=== PATIENT | female | born 1960 | race Caucasian/White ===

== ENCOUNTER 2016-10-04 08:21 | Observation (INO) | payer SELFPAY ==
[2016-10-04] MEDS ORDERED: Ondansetron INJ* 2 MG/ML VIAL IV ONE (08:57)
[2016-10-04] MEDS ORDERED: Ketorolac INJ* 30 MG/ML 1 ML VIAL IV PUSH ONE (08:57)
[2016-10-04 09:30] LABS: Hematocrit 42 % (35-47); Hemoglobin 14.1 g/dl (12.0-16.0); Mean Corpuscular HGB Conc 34 g/dl (31-36); Mean Corpuscular Hemoglobin 30 pg (27-31); Mean Corpuscular Volume 89 fL (80-97); Mean Platelet Volume 8 um3 (7.4-10.4); Red Blood Count 4.71 10^6/ul (4.0-5.4); Red Cell Distribution Width 14 % (10.5-15); White Blood Count 13.8 10^3/ul (3.5-10.8)
[2016-10-04 09:50] LABS: BUN/Creatinine Ratio 12.2 (8-20); C Reactive Protein 84.44 mg/L (< 5.00); Calcium 8.9 mg/dL (8.6-10.3); EGFR African American 105.2 (>60); EGFR Non-African American 81.8 (>60); Globulin 3.2 g/dL (2-4); Potassium 3.4 mmol/L (3.5-5.0); Total Bilirubin 0.8 mg/dL (0.2-1.0); Total Protein 7.2 g/dL (6.4-8.9)
[2016-10-04] MEDS ORDERED: Iohexol 300* (CONTRAST) 10 ML SDV IV ONE (10:28)
[2016-10-04 11:15] LABS: Urine Bacteria Absent (Absent); Urine Bilirubin Negative (Negative); Urine Glucose Negative (Negative); Urine Nitrite Negative (Negative)
--- NOTE | 2016-10-04 11:31 | RAD ---
CLINICAL HISTORY: Abdominal pain COMPARISON: None TECHNIQUE: Multiple contiguous axial CT scans were obtained of the abdomen and pelvis after the administration of intravenous contrast. Coronal and sagittal multiplanar reformations are submitted for review. Oral contrast was administered. Delayed images were obtained through the abdomen and pelvis. FINDINGS: LUNG BASES: The lung bases are clear. LIVER: The liver is normal in shape, size, contour, and attenuation. BILE DUCTS: There is no intrahepatic or extrahepatic biliary dilatation. GALLBLADDER: The gallbladder is normal, without pericholecystic inflammatory change. PANCREAS: The pancreas is normal, without mass or ductal dilatation. SPLEEN: Normal in size and appearance. UPPER GI TRACT: Evaluation of the gastrointestinal tract is limited by incomplete gastric distention. The upper GI tract is unremarkable. SMALL BOWEL AND MESENTERY: The small bowel is normal in contour, course, and caliber. There is no obstruction or dilatation. COLON: The colon is normal in contour, course, caliber. There is no pericolonic inflammatory change. There is a tubular, vermiform, hollow viscus consistent with the appendix. There is dilatation of the tip of the appendix, best seen on coronal image 36, with a small appendicolith. There is straightening of the periappendiceal fat. There is no loculated fluid collection to suggest abscess. ADRENALS: Normal bilaterally. KIDNEYS: The kidneys are normal in shape, size, contour, and axis. There is no hydronephrosis or nephrolithiasis. BLADDER: The bladder is incompletely distended but is grossly normal. PELVIC ORGANS: An IUD is noted. AORTA: The aorta is normal. IVC: Unremarkable LYMPH NODES: There is no lymphadenopathy by size criteria. ABDOMINAL WALL: There is no evidence for abdominal wall hernia. BONES AND SOFT TISSUES: Mild degenerative changes are noted OTHER: None IMPRESSION: FINDINGS MOST CONSISTENT WITH ACUTE APPENDICITIS LOCALIZED TO THE TIP OF THE APPENDIX. THERE IS NO LOCULATED FLUID COLLECTION TO SUGGEST ABSCESS
[2016-10-04] MEDS ORDERED: Morphine INJ* 4 MG/ML 1 ML SYRINGE IV ONE (11:35)
[2016-10-04] MEDS ORDERED: ceFOXitin(*) 1 GM in NS 0.9% 50 ML* 50 ML IVPB ONE (11:38)
[2016-10-04] MEDS ORDERED: KCL 10 MEQ/50 ML IVPREMIX* 10 MEQ/50 ML BAG IV ONE (12:04)
[2016-10-04] MEDS ORDERED: Insulin REGULAR(*) 1 UNITS UNIT IV PUSH ONE (12:05)
[2016-10-04] MEDS ORDERED: Famotidine IV* 10 MG/ML 2 ML (20 mg) IV ONE (12:26)
--- NOTE | 2016-10-04 12:50 | ED ---
Arsenio Carranza Auryana, scribed for Babatunde Chandler MD on 10/04/16 at 0847 . Abdominal Pain/Female - HPI Summary HPI Summary: 56 year old female BIBA with burning LUQ abdominal pain starting yesterday morning. She states that the pain subsided, and then pain returned as cramping/ burning abdominal pain but is now severe suprapubic cramping - reports "felt like passing a kidney stone". The pain is a 9/10 and is constant but intermittently worse. She also has "hot and cold" episodes, vomiting x2, increased urgency of urination - urinated x5 last night, and decreased appetite (no food yesterday - constipation due to that). She denies any diarrhea. She reports movement aggravates the pain - states that it feels like muscle cramping. Mild improvement with heating pad. IUD 6 years ago. PMHx is significant for kidney stones and carpal tunnel Sx but no HTN, HLD, or DM. She denies any FHx. SHx is significant for tobacco (3-4 packs/ week) and occasional alcohol use (last - Tuesday night - wine) but no recreational drugs. - History of Current Complaint Stated Complaint: ABD PAIN Time Seen by Provider: 10/04/16 08:26 Hx Obtained From: Patient Hx Last Menstrual Period: n/a ?: No Onset/Duration: Gradual Onset - STARTING YESTERDAY, Still Present Timing: Constant - WITH INTERMITTENT SEVERE EPISODES Severity Initially: Moderate Severity Currently: Severe Pain Intensity: 9 Pain Scale Used: 0-10 Numeric Location: Diffuse - SEE HPI Character: Sharp, Burning, Cramping Aggravating Factor(s): Movement Alleviating Factor(s): Other: - MILD ALLEVIATION FROM HEATING PAD Associated Signs and Symptoms: Positive: Urinary Symptoms - INCREASED URGENCY, Decreased Appetite, Vomiting, Other: - HOT AND COLD EPISODES. Negative: Diarrhea Allergies/Adverse Reactions: Allergies Allergy/AdvReac Type Severity Reaction Status Date / Time Cephalexin Allergy Diarrhea Verified 10/04/16 11:56 Penicillins Allergy Rash Verified 10/04/16 11:52 Home Medications: Home Medications NK [No Home Medications Reported] 10/04/16 [History Confirmed 10/04/16] PMH/Surg Hx/FS Hx/Imm Hx Endocrine/Hematology History: Denies: Hx Diabetes Cardiovascular History: Denies: Hx Hypercholesterolemia, Hx Hypertension History: Reports: Hx Kidney Stones - Surgical History Surgery Procedure, Year, and Place: CARPAL TUNNEL SX - Family History Known Family History: Positive: None Negative: Cardiac Disease, Hypertension - Social History Occupation: Employed Full-time - SELF EMPLOYED Lives: Alone Alcohol Use: Occasionally Alcohol Amount: 3 DAYS AGO - TUESDAY - WINE Hx Substance Use: No Substance Use Type: Reports: None Hx Tobacco Use: Yes Smoking Status (MU): Heavy Every Day Tobacco Smoker Type: Cigarettes Review of Systems Positive: Other - HOT AND COLD FLASHES. Negative: Fever Eyes: Negative ENT: Negative Cardiovascular: Negative Respiratory: Negative Positive: Abdominal Pain, Vomiting, Nausea. Negative: Diarrhea Positive: urgency - INCREASED Musculoskeletal: Negative Skin: Negative Neurological: Negative Psychological: Normal All Other Systems Reviewed And Are Negative: Yes Physical Exam - Summary Physical Exam Summary: VITAL SIGNS: Reviewed. Normal vital signs. GENERAL: Patient is a well developed and overweight female who is lying uncomfortable in the stretcher secondary to abdominal pain. Patient is not in any acute respiratory distress. HEAD AND FACE: Normocephalic and atraumatic. EYES: PERRLA, EOMI x 2, No injected conjunctiva. EARS: Hearing grossly intact. Ear canals and tympanic membranes are WNL. MOUTH: Oropharynx within normal limits. NECK: Supple, trachea is midline, no adenopathy, no JVD. CHEST: Symmetric, no tenderness at palpation LUNGS: Clear to auscultation bilaterally. No wheezing or crackles. CVS: RRR,, S1 and S2 present, no murmurs or gallops appreciated. ABDOMEN: Soft. Difficult to palpate due to reported pain. Diffuse tenderness with increased tenderness in the RLQ. No signs of distention. Positive bowel sounds. No abdominal bruit or pulsations. EXTREMITIES: FROM in all major joints, no edema, no cyanosis or clubbing. NEURO: Alert and oriented x 3. No acute neurological deficits. Speech is normal. SKIN: Dry and warm Triage Information Reviewed: Yes Vital Signs On Initial Exam: Initial Vitals Temp Pulse Resp BP Pulse Ox 98.6 F 73 16 107/66 100 10/04/16 08:28 10/04/16 08:28 10/04/16 08:28 10/04/16 08:28 10/04/16 08:28 Vital Signs Reviewed: Yes Diagnostics - Vital Signs Vital Signs Temp Pulse Resp BP Pulse Ox 10/04/16 11:57 16 10/04/16 08:28 98.6 F 73 16 107/66 100 - Laboratory Lab Results: Lab Results 10/04/16 10/04/16 10/04/16 Range/Units 09:15 09:15 09:15 WBC 13.8 H (3.5-10.8) 10^3/ul RBC 4.71 (4.0-5.4) 10^6/ul Hgb 14.1 (12.0-16.0) g/dl Hct 42 (35-47) % MCV 89 (80-97) fL MCH 30 (27-31) pg MCHC 34 (31-36) g/dl RDW 14 (10.5-15) % Plt Count 236 (150-450) 10^3/ul MPV 8 (7.4-10.4) um3 Neut % (Auto) 84.0 H (38-83) % Lymph % (Auto) 10.0 L (25-47) % [place] % (Auto) 4.6 (1-9) % Eos % (Auto) 0.3 (0-6) % Baso % (Auto) 1.1 (0-2) % Absolute Neuts (auto) 11.6 H (1.5-7.7) 10^3/ul Absolute Lymphs (auto) 1.4 (1.0-4.8) 10^3/ul Absolute Monos (auto) 0.6 (0-0.8) 10^3/ul Absolute Eos (auto) 0 (0-0.6) 10^3/ul Absolute Basos (auto) 0.2 (0-0.2) 10^3/ul Absolute Nucleated RBC 0.01 10^3/ul Nucleated RBC % 0 Sodium 139 (133-145) mmol/L Potassium 3.4 L (3.5-5.0) mmol/L Chloride 101 (101-111) mmol/L Carbon Dioxide 27 (22-32) mmol/L Anion Gap 11 (2-11) mmol/L BUN 9 (6-24) mg/dL Creatinine 0.74 (0.51-0.95) mg/dL Est GFR ( Amer) 105.2 (>60) Est GFR (Non-Af Amer) 81.8 (>60) BUN/Creatinine Ratio 12.2 (8-20) Glucose 114 H (70-100) mg/dL Lactic Acid 1.6 (0.5-2.0) mmol/L Calcium 8.9 (8.6-10.3) mg/dL Total Bilirubin 0.80 (0.2-1.0) mg/dL AST 12 L (13-39) U/L ALT 18 (7-52) U/L Alkaline Phosphatase 80 (34-104) U/L C-Reactive Protein 84.44 H (< 5.00) mg/L Total Protein 7.2 (6.4-8.9) g/dL Albumin 4.0 (3.2-5.2) g/dL Globulin 3.2 (2-4) g/dL Albumin/Globulin Ratio 1.3 (1-3) Amylase 20 L (29-103) U/L Lipase 14 (11.0-82.0) U/L Urine Color Urine Appearance Urine pH (5-9) Ur Specific [place] (1.010-1.030) Urine Protein (Negative) Urine Ketones (Negative) Urine Blood (Negative) Urine Nitrate (Negative) Urine Bilirubin (Negative) Urine Urobilinogen (Negative) Ur Leukocyte Esterase (Negative) Urine WBC (Auto) (Absent) Urine RBC (Auto) (Absent) Ur Squamous Epith Cells (Absent) Urine Bacteria (Absent) Urine Glucose (Negative) 10/04/16 Range/Units 10:45 WBC (3.5-10.8) 10^3/ul RBC (4.0-5.4) 10^6/ul Hgb (12.0-16.0) g/dl Hct (35-47) % MCV (80-97) fL MCH (27-31) pg MCHC (31-36) g/dl RDW (10.5-15) % Plt Count (150-450) 10^3/ul MPV (7.4-10.4) um3 Neut % (Auto) (38-83) % Lymph % (Auto) (25-47) % [place] % (Auto) (1-9) % Eos % (Auto) (0-6) % Baso % (Auto) (0-2) % Absolute Neuts (auto) (1.5-7.7) 10^3/ul Absolute Lymphs (auto) (1.0-4.8) 10^3/ul Absolute Monos (auto) (0-0.8) 10^3/ul Absolute Eos (auto) (0-0.6) 10^3/ul Absolute Basos (auto) (0-0.2) 10^3/ul Absolute Nucleated RBC 10^3/ul Nucleated RBC % Sodium (133-145) mmol/L Potassium (3.5-5.0) mmol/L Chloride (101-111) mmol/L Carbon Dioxide (22-32) mmol/L Anion Gap (2-11) mmol/L BUN (6-24) mg/dL Creatinine (0.51-0.95) mg/dL Est GFR ( Amer) (>60) Est GFR (Non-Af Amer) (>60) BUN/Creatinine Ratio (8-20) Glucose (70-100) mg/dL Lactic Acid (0.5-2.0) mmol/L Calcium (8.6-10.3) mg/dL Total Bilirubin (0.2-1.0) mg/dL AST (13-39) U/L ALT (7-52) U/L Alkaline Phosphatase (34-104) U/L C-Reactive Protein (< 5.00) mg/L Total Protein (6.4-8.9) g/dL Albumin (3.2-5.2) g/dL Globulin (2-4) g/dL Albumin/Globulin Ratio (1-3) Amylase (29-103) U/L Lipase (11.0-82.0) U/L Urine Color Yellow Urine Appearance Cloudy Urine pH 7.0 (5-9) Ur Specific [place] 1.006 L (1.010-1.030) Urine Protein Negative (Negative) Urine Ketones 1+ H (Negative) Urine Blood 1+ H (Negative) Urine Nitrate Negative (Negative) Urine Bilirubin Negative (Negative) Urine Urobilinogen Negative (Negative) Ur Leukocyte Esterase 3+ H (Negative) Urine WBC (Auto) 3+(>20/hpf) H (Absent) Urine RBC (Auto) 2+(6-10/hpf) H (Absent) Ur Squamous Epith Cells Present H (Absent) Urine Bacteria Absent (Absent) Urine Glucose Negative (Negative) Result Diagrams: 10/04/16 09:15 05/22/17 09:15 Lab Statement: Any lab studies that have been ordered have been reviewed, and results considered in the medical decision making process. - CT ABD/PEL CT Interpretation: Positive (See Comments) - IMPRESSION: FINDINGS MOST CONSISTENT WITH ACUTE APPENDICITIS LOCALIZED TO THE TIP OF THE APPENDIX. THERE IS NO LOCULATED FLUID COLLECTION TO SUGGEST ABSCESS CT Interpretation Completed By: Radiologist Re-Evaluation - Re-Evaluation First Eval Re-Evaluation Time: 11:40 - still in pain but much better with dose of morphine Comment: discussed surgical plan with patient Abdominal Pain Fem Course/Dx - Course Course Of Treatment: 56 year old female BIBA with burning LUQ abdominal pain starting yesterday morning. She states that the pain subsided, and then pain returned as cramping/burning abdominal pain but is now severe suprapubic cramping - reports "felt like passing a kidney stone". The pain is a 9/10 and is constant but intermittently worse. She also has "hot and cold" episodes, vomiting x2, increased urgency of urination - urinated x5 last night, and decreased appetite (no food yesterday - constipation due to that). She denies any diarrhea. She reports movement aggravates the pain - states that it feels like muscle cramping. Mild improvement with heating pad. IUD 6 years ago. PMHx is significant for kidney stones and carpal tunnel Sx but no HTN, HLD, or DM. She denies any FHx. SHx is significant for tobacco (3-4 packs/ week) and occasional alcohol use (last - Tuesday night - wine) but no recreational drugs. Test results shows an increased 13.8 w/o bands, potassium 3.4 for she was given KCL IV, glucose of 114 and CRP 84.44. Urine is contaminated. Abdominal and pelvic CT results FINDINGS MOST CONSISTENT WITH ACUTE APPENDICITIS LOCALIZED TO THE TIP OF THE APPENDIX. THERE IS NO LOCULATED FLUID COLLECTION TO SUGGEST ABSCES. In the ED she was given IV fluids, toradol and Morphine for the pain. I discussed the case with Dr. Mackey who accepted the patient to his services. Patient is Alert and Oriented and she is hemodynamically stable. - Diagnoses Differential Diagnosis: Positive: Appendicitis, Constipation, Diverticulitis, Irritable Bowel Syndrome Provider Diagnoses: Acute appendicitis - Provider Notifications Discussed Care Of Patient With: Dr. Mackey Time Discussed With Above Provider: 11:37 - agrees to surgery Instructed by Provider To: Other - admission to surgery- OR Discharge - Discharge Plan Condition: Stable Disposition: ADMITTED TO [facility] Referrals: No Primary Care Phys,NOPCP [Primary Care Provider] - The documentation as recorded by the Arsenio ponce Auryana accurately reflects the service I personally performed and the decisions made by , Babatunde Chandler MD.
[2016-10-04] MEDS ORDERED: HYDROmorphone* 1 MG/ML 1 ML SYR IV PRN (13:28)
[2016-10-04] MEDS ORDERED: Ondansetron INJ* 2 MG/ML VIAL IV PRN (13:28)
[2016-10-04] MEDS ORDERED: LEVOFLOXACIN IVPB SCH (14:00)
[2016-10-04] MEDS ORDERED: metroNIDAZOLE IV 500 MG/100ML* 500 MG/100 ML BAG IVPB SCH (14:00)
[2016-10-04] MEDS ORDERED: D5W IVPB SCH (14:00)
[2016-10-04] MEDS ORDERED: Atracurium* 10 MG/ML 10 ML VIAL ONE (14:20)
[2016-10-04] MEDS ORDERED: Midazolam* 1 MG/ML 5 ML VIAL (5 MG) ONE (14:20)
[2016-10-04] MEDS ORDERED: fentaNYL* 50 MCG/ML 2 ML VIAL (100 MCG VIAL) ONE (14:20)
[2016-10-04] MEDS ORDERED: KETAMINE HCL* 50 MG/ML 10 ML VIAL ONE (14:20)
--- NOTE | 2016-10-04 14:52 | HP ---
DATE OF ADMISSION: 10/04/2016. ATTENDING SURGEON: Dr. Whatley (DICTATED BY RILEY NAIK) REASON FOR ADMISSION: Abdominal pain and acute appendicitis. HISTORY OF PRESENT ILLNESS: Ms. Elliott is a pleasant, 56-year-old female who presented to the emergency room earlier today with complaints of 24 hours of worsening abdominal pain. She drove to [place] a couple of weeks ago and she actually lives in [place], [place], and she was here visiting some family and friends when she started having that pain yesterday. She notes that her pain started in the afternoon in the form of heartburn and headache and "gas bubble" in her stomach localized to the left upper quadrant initially and then started to migrate to the suprapubic area. The pain turned from being gassy to a constant sharp suprapubic pain on and off that feels like passing a kidney stone. She reports associated nausea and vomiting with two episodes yesterday. She also reported feeling hot and cold, but denies taking her temperature or actual fever. Her pain eventually was localized to the right lower quadrant and was associated with some dysuria and urinary frequency. She notes getting up to urinate five times last night. She denies having similar symptoms in the past. Otherwise, she is a previously healthy, 56-year-old female who is, as mentioned above, in town to visit family and friends. She notes some improvement last night of her pain, but she got this morning and she noted increased episodes of right lower quadrant abdominal tenderness. She was seen in the emergency room and had laboratory work- up that showed leukocytosis. Her CT scan was consistent with findings of acute appendicitis for which we were asked to see the patient for surgical evaluation. PAST MEDICAL HISTORY: She reports history of kidney stones in the past, but denies having any ureteroscopies or any surgical intervention in that matter. She denies any history of heart, liver, or lung disease. PAST SURGICAL HISTORY: Significant for carpal tunnel release some 25 years ago on the left hand, as well as minor I and D of an abscess on her mandible. CURRENT MEDICATIONS: None. ALLERGIES: She is ALLERGIC TO PENICILLIN AND CEPHALEXIN. FAMILY HISTORY: Noncontributory. SOCIAL HISTORY: The patient smokes on average three to four packs per week. She occasionally drinks alcohol and caffeine intake is minimal. REVIEW OF SYSTEMS: She HPI, otherwise negative. She denies any headache, dizziness, blurred vision or syncope. No cough, wheezing, chest pain or shortness of breath. She admits to abdominal pain with associated nausea and vomiting, but denies any changes in bowel habits or bleeding per rectum. No flank pain, hematuria, or dysuria, although she notes urinary frequency last night with association of her pain. No heat or cold intolerance. No recent weight loss or night sweats. PHYSICAL EXAMINATION GENERAL: She is a pleasant, healthy-appearing, middle-aged female in no acute distress or discomfort at the time of admission. VITAL SIGNS: Temperature 98.6, pulse 73, blood pressure 107/66, respiration of 16, O2 sat 100 percent. She is 180 pounds on a 5'6" frame who has a BMI of 29.1. HEENT: Sclerae anicteric. PERRLA. EOM's intact. Oropharynx is pink and moist with no exudate. NECK: Supple. Trachea midline. No cervical adenopathy, thyromegaly or JVD. LUNGS: Clear to auscultation bilaterally. No rales, wheezes or rhonchi. HEART: Regular rate and rhythm. Normal S1 and S2 without rubs, murmurs or gallops. BACK: Normal curvature. No CVA tenderness. BREASTS: Exam deferred at this time. ABDOMEN: Soft and nondistended. Moderate right lower quadrant tenderness on light palpation was noted. There is moderate guarding and rebound tenderness as well. No hernias, masses or hepatosplenomegaly. There is significant tenderness noted at McBurney's point. EXTREMITIES: Without cyanosis, clubbing, or edema. RECTAL: Exam deferred at this time. NEUROLOGIC: Gross intact. LABORATORY WORK-UP: CBC showed white count of 13,800, hemoglobin of 14.1, hematocrit of 42 and platelets of 236. Chemistry with sodium 137, potassium 3.4 , chloride 101, CO2 27, BUN 9, creatinine 0.7, glucose 114, her C-reactive protein was 84. LFT's, lipase, and amylase were essentially within normal limits. Her urine shows 3+ leukocytes as well. ACCESSORY DIAGNOSTIC DATA: The patient had a CT scan of the abdomen and pelvis that revealed findings consistent with acute appendicitis without a loculated fluid collection to suggest abscesses. ASSESSMENT: Vrtfi-hyls-cush-old female with signs and symptoms as well as CT scan findings consistent with acute appendicitis. PLAN: The patient will be directly admitted under Surgical Services in anticipation for laparoscopic appendectomy later this afternoon. I discussed with her proceeding with surgery given her ongoing symptoms. The rationale, indications, risks, and benefits of laparoscopic appendectomy with discussed with her today. Risks include, but not limited to infection, bleeding, or injury to adjacent structures. She appears to understand and wishes to proceed as outlined. We also find that she had a urinary tract infection in addition to her acute appendicitis for which it will be covered using Levaquin as a prophylactic antibiotic dose prior to surgery. We will also keep her NPO for now with some IV fluid hydration and the analgesic. Case was discussed with Dr. Whatley who accepted the patient and will likely take her to the operating room this afternoon in anticipation for surgery. RILEY NAIK [id number]/[facility] #: [id number] RAEGAN
[2016-10-04] MEDS ORDERED: metroNIDAZOLE IV 500 MG/100ML* 500 MG/100 ML BAG IVPB ONE (15:00)
[2016-10-04] MEDS ORDERED: Levofloxacin 500 MG IVPREMIX(* 500 MG/100 ML BAG IVPB ONE (15:00)
[2016-10-04] MEDS ORDERED: Famotidine IV* 10 MG/ML 2 ML (20 mg) ONE (15:00)
[2016-10-04] MEDS ORDERED: Bupivacaine 0.25% EPI 200,000* 30 ML SDV ONE (15:04)
[2016-10-04] MEDS ORDERED: Glycopyrrolate IV* 0.2 MG/ML 1 ML VIAL ONE ×2 (15:46→16:35)
[2016-10-04] MEDS ORDERED: Dexamethasone IV* 4 MG/ML 1 ML (4 MG) ONE (15:46)
[2016-10-04] MEDS ORDERED: Propofol* 10 MG/ML 20 ML BTL IV PUSH ONE (15:46)
[2016-10-04] MEDS ORDERED: Ketorolac INJ* 30 MG/ML 1 ML VIAL ONE (15:46)
[2016-10-04] MEDS ORDERED: Ondansetron INJ* 2 MG/ML VIAL ONE (15:46)
[2016-10-04] MEDS ORDERED: Neostigmine Methylsulfate* 2 MG/2 ML SYRINGE ONE ×2 (15:46→16:35)
[2016-10-04] MEDS ORDERED: fentaNYL* 50 MCG/ML 2 ML VIAL (100 MCG VIAL) IV PRN (15:58)
[2016-10-04] MEDS ORDERED: oxyCODONE/Acetamin 5/325 MG* TAB PO PRN ×3 (15:58→16:48)
[2016-10-04] MEDS ORDERED: PROCHLORPERAZINE INJ 5 MG/ML 2 ML VIAL IV PRN (15:58)
[2016-10-04] MEDS ORDERED: Morphine INJ* 2 MG/ML 1 ML SYRINGE IV PRN (15:58)
[2016-10-04] MEDS ORDERED: Morphine INJ* 10 MG/ML 1 ML SYRINGE ONE (16:20)
--- NOTE | 2016-10-04 16:45 | SURGPN ---
Brief Operative Note - Surgery Procedures: OPERATIVE REPORT PRE-OP: Acute appendicitis POST-OP: Acute perforated appendicitis PROCEDURE: Laparoscopic appendectomy SURGEON: MD Chacorta ANESTHESIA: General with local with [place] ASST: none IVF: 1 liter of crystalloid EBL: min SPECIMEN: appendix DRAIN: none WOUND CLASS: 4 COMPLICATIONS: none TO PACU
[2016-10-04] MEDS ORDERED: PROCHLORPERAZINE INJ 5 MG/ML 2 ML VIAL ONE (17:49)
[2016-10-04] MEDS: Ketorolac INJ* 30 MG/ML 1 ML VIAL IV PUSH PRN (22:07)
[2016-10-04] MEDS: Heparin VIAL(*) 5000 UNITS/ML VIAL (FIVE THOUSAND) SUBCUT SCH (22:07)
[2016-10-05] MEDS: metroNIDAZOLE IV 500 MG/100ML* 500 MG/100 ML BAG IVPB SCH ×2 (00:59→07:52)
[2016-10-05] MEDS: Ketorolac INJ* 30 MG/ML 1 ML VIAL IV PUSH PRN (05:52)
[2016-10-05] MEDS: Heparin VIAL(*) 5000 UNITS/ML VIAL (FIVE THOUSAND) SUBCUT SCH ×2 (05:52→15:09)
[2016-10-05] MEDS ORDERED: HYDROcodone/ACETAMIN 5-325 MG* 1 TAB PO PRN ×2 (08:10→08:11)
--- NOTE | 2016-10-05 08:17 | PN ---
Progress Note - Progress Note SOAP: Subjective: Feels better-pain is adequately controlled Tolerating water- Voiding without problem but needs help to get to bathroom Objective: Temp Pulse Resp BP Pulse Ox 97.7 F 59 18 114/61 96 10/05/16 07:22 10/05/16 07:22 10/05/16 07:22 10/05/16 07:22 10/05/16 07:25 Intake & Output 10/03/16 10/04/16 10/05/16 10/06/16 06:59 06:59 06:59 06:59 Intake Total 3077 Output Total 450 Balance 2627 Weight 180 lb Intake: IV Fluids 2677 LR 2482 Oral 400 Output: Urine 450 Other: Estimated Void Large # Bowel Movements 1 Estimated Stool Amount Small Estimated Blood Loss MINIMAL Comment PEX: Comfortable Lungs are CTA Abd is soft and non-distended. Incisions are clean and dry. Bowel sounds are present. Ext without edema Assessment: POD # 1 s/p lap appy for perforated appendicitis Plan: Advance diet Increase activity Oral analgesia IV abx-plan 5 days of oral antibiotics on discharge If doing well this afternoon, plan d/c today.
[2016-10-05] MEDS ORDERED: Levofloxacin 500 MG IVPREMIX(* 500 MG/100 ML BAG IVPB SCH (15:30)
[2016-10-05] MEDS ORDERED: LEVOFLOXACIN IVPB SCH (15:30)
[2016-10-05] MEDS ORDERED: D5W IVPB SCH (15:30)
--- NOTE | 2016-10-05 15:58 | OP ---
OPERATIVE REPORT: DATE OF OPERATION: 10/04/16 - inpatient room #340-01 DATE OF : 64 SURGEON: Brain Whatley MD. TRANSFER PROFESSOR: None. ANESTHESIOLOGIST: Dr. Camacho. ANESTHESIA: General with local. PRE-OP DIAGNOSIS: Acute appendicitis. POST-OP DIAGNOSIS: Acute perforated appendicitis. OPERATIVE PROCEDURE: Laparoscopic appendectomy. SPECIMEN: Appendix. WOUND CLASSIFICATION: IV. COMPLICATIONS: None. DRAINS: None. FINDINGS: The distal portion of the tip of the appendix had perforated and rolled off, and there was significant fibrinous exudate and purulence in the right lower quadrant as well as the pelvis. No abscess was noted. BRIEF HISTORY: Ms. Sonia Elliott is a 56-year-old woman visiting the [place] area, developed abdominal pain yesterday, becoming more severe in the suprapubic and right lower quadrant area. It became quite unbearable. She presented to the emergency room today, was noted to have a leukocytosis with lower abdominal pain. A CT scan of the abdomen and pelvis had confirmed appendicitis, mainly in the distal half of the appendix. She has been seen in consultation and after seeing her, it was recommended that she undergo an appendectomy for acute appendicitis. The procedure was discussed with her and the risks, but not limited to, bleeding , infection, intraabdominal abscess formation, injury to peritoneal and retroperitoneal structures, possibility of an open procedure were all explained. The risks of general anesthesia, deep vein thrombosis, postoperative hospital stay and recovery times were also briefly discussed. In addition, I did discuss nonoperative management with IV antibiotics, and also the fact that we do not recommend this here in the [place] and she was understanding and has made the decision to proceed with surgery. DESCRIPTION OF PROCEDURE: Written informed consent was obtained, the abdomen was marked with indelible ink and preoperative antibiotics were administered. The patient was taken to the operating room, placed in the supine position. Sequential compression devices and a warming blanket were applied. General anesthesia was administered and the abdomen was prepped and draped in the usual sterile fashion. Time-out verification was completed. Next, a small transverse incision was made just below the umbilicus and the fascia was opened under direct vision. The peritoneal cavity was entered under direct vision. A 12-mm blunt port was inserted and the abdomen was insufflated to 15 mmHg. Under direct vision, a 5-mm port was placed in the left lower abdominal wall and a second 5-mm port was placed in the suprapubic position. It was obvious that there was pus and purulent fibrinous exudate in the pelvis as well as the right lower quadrant. The cecum was distended but identified, but it appeared to be normal. The terminal ileum was somewhat inflamed and there was an obvious inflammatory mass where the small bowel had draped itself over the appendix. I was able to peel this off bluntly through quite a bit of fibrinous exudate and the peritoneal surfaces of the bowel were somewhat irritated. As I peeled the small bowel as well as its fatty portion and the portion of the terminal ileum off the appendix, it was obvious that there was a portion of perforated appendix in the distal half of the appendix with a small necrotic area. I was able to free up the appendix and the mesentry using blunt dissection. It appeared that the proximal half of the appendix was completely normal, and once we were able to elevate the appendix up into view, I divided the mesoappendix from distal to proximal sequentially with the LigaSure device. The base of the cecum and the appendix were normal and I divided the appendix with an Endo ARISTEO bailey load of a 30-mm stapler. The appendix was placed in the EndoCatch bag and brought out through the umbilical incision. Hemostasis was assured. The staple line was intact. I irrigated the right lower pelvis and lower quadrant with a large amount of normal saline until clear. No drains were placed. All ports were then removed under direct vision of the camera and there was no abdominal wall bleeding. The umbilical fascia was closed with interrupted 0 Polysorb suture. The skin at all three incisions were approximated with subcuticular 4-0 Polysorb suture. Steri-Strips were applied. The patient tolerated the procedure well and was taken to recovery room in stable condition. CC: [facility]. [id number]/[facility] #: [id number] RAEGAN
[2016-10-05 16:09] VITALS: BP 106/63
--- NOTE | 2016-10-06 05:28 | DS ---
DISCHARGE SUMMARY: DATE OF ADMISSION: 10/04/16 DATE OF DISCHARGE: 10/05/16 ATTENDING SURGEON: Brain Whatley MD HOSPITAL COURSE: Please refer to admission history and physical for admission details. The patient was taken to the operating room on 10/04/[address] Whatley, at which time she underwent laparoscopic appendectomy. Findings included perforation at the tip of the appendix. Surgery was otherwise uneventful. Postoperative course is notable for gradual improvement of pain as well as ability to take oral diet and increased mobility. As of the morning of discharge and per Dr. Whatley's exam, she was afebrile and her vital signs were stable. Her lungs were clear to auscultation. Abdomen was soft and nondistended. The incisions were clean and dry under Steri-Strips, which were left in place. Bowel sounds were present. IMPRESSION: Status post laparoscopic appendectomy for acute perforated appendicitis. PLAN: Discharged home (she will be staying locally with a friend as she is from out of town). She will finish another 5 days of oral antibiotics (Cipro 500 mg b.i.d. and Flagyl 500 mg t.i.d.). She was also advised in terms of pain control, which will include Tylenol and/or aspirin, ibuprofen, or Aleve for mild -to-moderate pain or [place] p.r.n. for more severe pain. Prescriptions were e- sent to [facility] in [place]. [facility] registry was checked. Instructions were reviewed regarding wound care, diet, and activity as the patient is planning to be on road soon. Followup will be p.r.n. though I did encourage her to give us a call earlier next week for a phone update and certainly if any problems, signs; i.e., fever, chills, nausea, vomiting, or increased pain. RILEY HUSTON CC: Brain Whatley MD; [facility] [id number]/[facility] #: [id number] MTDD
== END 2016-10-05 16:58 | disposition home or self-care (01) ==
LOC: ED 08:21 → OR 13:28 → ED 13:37 → SSU 18:33
PROVIDERS: ADMIT Surgery; ATTEND Surgery
DX: K35.2 Acute appendicitis with generalized peritonitis (principal); R10.9 Unspecified abdominal pain; F17.210 Nicotine dependence, cigarettes, uncomplicated
CPT/HCPCS: 36415; 74177; 80053; 81003; 81015; 82150; 83605; 83690; 85025; 86140; 87086; 88304; 96374; 96375; 96376; 99283; 99406; G0378; J0694; J0780; J1100; J1644; J1885; J1956; J2250; J2270; J2405; J2704; J3010; J3480; Q9967